=== PATIENT | male | born 1980 | race Caucasian/White ===

== ENCOUNTER 2017-12-11 23:21 | Emergency (ER) | payer MEDICAID, OTHER ==
--- NOTE | 2017-12-11 23:35 | EDPHY ---
H & P Stated Complaint: SENT FROM [facility] VIA [facility]AX[facility] Source: Patient Exam Limitations: Clinical condition - Personal History Current Tetanus/Diphtheria Vaccine: Yes - Medical/Surgical History Hx Asthma: No Hx Chronic Respiratory Disease: No Hx Diabetes: No Hx Cardiac Disease: No Hx Renal Disease: No Hx Cirrhosis: No Hx Alcoholism: No Hx HIV/AIDS: No Hx Splenectomy or Spleen Trauma: No Other PMH: DENIES - Social History Smoking Status: Former smoker Time Seen by Provider: 12/11/17 23:35 HPI/ROS: HPI: This is a 37-year-old male who presents with Chief Complaint: SENT FROM [facility]IA [facility] Location:psych Quality: paranoid Duration:today Signs and Symptoms: + auditory and visual command hallucinations, no suicidal ideation with a plan, no homicidal ideation, + paranoid Timing: Unknown Severity: Severe Context: Patient arrived via taxi from [facility]. Patient is clearly severely paranoid, gravely disabled, delusional. Patient is a very poor historian. Constantly needs redirection and prompting in order to get to his room, change his clothes, take blood. He E constantly talks about wanting to climb the [place]. Admits to drinking alcohol this evening. Denies recreational drug use. Denies any medical complaints. Reports that he is hungry and asking for food and Gatorade to drink. Modifying Factors: None Comment: ROS: see HPI Constitutional: No fever, no chills, no weight loss Eyes: No blurred vision Respiratory: No shortness of breath, no cough Cardiovascular: No chest pain Gastrointestinal: No nausea, no vomiting, no diarrhea Genitourinary: No dysuria Extremities: No myalgias Neurologic: No weakness, no numbness Skin: No rashes Hematologic: No bruising, no bleeding MEDICAL/SURGICAL/SOCIAL HISTORY: Medical history: Unknown Surgical history: Denies Social history: Unknown CONSTITUTIONAL: Untidy, uncooperative at times, adult male, awake and alert, no obvious distress HEENT: Atraumatic and normocephalic, PERRL, EOMI. Tympanic membranes clear. Oropharynx clear, no exudate and moist pink mucosa. Airway patent. No lymphadenopathy. No meningismus. Cardiovascular: Normal S1/S2, regular rate, regular rhythm, without murmur rub or gallop. PULMONARY/CHEST: Symmetrical and nontender. Clear to auscultation bilaterally. Good air movement. No accessory muscle usage. ABDOMEN: Soft, nondistended, nontender, no rebound, no guarding, no peritoneal signs, no masses or organomegaly. No CVAT. EXTREMITIES: 2/2 pulses, strength 5/5, no deformities, no clubbing, no cyanosis or edema. NEUROLOGICAL: no focal neuro deficits. GCS 15. SKIN: Warm and dry, no erythema. no rash. Good capillary refill. PSYCH: Poor eye contact, + flight of ideas, tangential disorganized thought process, poor insight and judgment, + auditory and visual command hallucinations , no suicidal ideation with a plan, no homicidal ideation, + paranoid (Jacquelyn Alston) Constitutional: Initial Vital Signs Temperature (C) 36.8 C 12/11/17 23:28 Heart Rate 82 12/11/17 23:28 Respiratory Rate 118 H 12/11/17 23:28 Blood Pressure 154/90 H 12/11/17 23:28 O2 Sat (%) 93 12/11/17 23:28 O2 Delivery Mode Room Air Allergies/Adverse Reactions: No Known Allergies Allergy (Unverified 12/11/17 23:27) Home Medications: Medication Instructions Recorded Celexa 12/11/17 Medical Decision Making ED Course/Re-evaluation: 2345: Placed on M1 hold as gravely disabled. Suspect schizophrenia. Given Zyprexa 5 mg ODT. Labs and UDS ordered. 0005: End of shift. Signed over to Dr. Thakkar pending labs and UDS; mental health evaluation; final disposition. This patient was seen under the supervision of my secondary supervising physician. I evaluated care for this patient independently. Discussed this patient with Dr. Thakkar who did not see the patient. (Jacquelyn Alston) PHYSICIAN DOCUMENTATION: The patient was evaluated and managed by the Physician Phlebotomist Prn. My co- signature indicates that I have reviewed this chart and I agree with the findings and plan of care as documented. I am the secondary supervising physician. 7:50 a.m.- The patient has remained stable throughout my shift. Alcohol level was elevated. Otherwise labs were unremarkable. He is currently awaiting sobriety and mental health evaluation. The case is signed out to the oncoming provider Dr. Raygoza. (Debora Thakkar) Differential Diagnosis: Altered mental status including but not limited to hypoglycemia, infectious process, electrolyte abnormality, head injury and intoxicants. (Jacquelyn Alston) Other Provider: Mental Health has completed evaluation at 1130am and has recommended lifting M1 hold. They recommend discharge to [id number]. (Az Raygoza) - Data Points Laboratory Results: Laboratory Results 12/11/17 23:50 12/11/17 23:50 12/11/17 12/11/17 12/11/17 23:50 23:50 23:44 WBC 7.49 10^3/uL 10^3/uL (3.80-9.50) RBC 5.32 10^6/uL 10^6/uL (4.40-6.38) Hgb 16.7 g/dL g/dL (13.7-17.5) Hct 48.2 % % (40.0-51.0) MCV 90.6 fL fL (81.5-99.8) MCH 31.4 pg pg (27.9-34.1) MCHC 34.6 g/dL g/dL (32.4-36.7) RDW 12.5 % % (11.5-15.2) Plt Count 264 10^3/uL 10^3/uL (150-400) MPV 9.4 fL fL (8.7-11.7) Neut % (Auto) 49.5 % % (39.3-74.2) Lymph % (Auto) 37.4 % % (15.0-45.0) [place] % (Auto) 10.0 % % (4.5-13.0) Eos % (Auto) 1.5 % % (0.6-7.6) Baso % (Auto) 1.2 % % (0.3-1.7) Nucleat RBC Rel Count 0.0 % % (0.0-0.2) Absolute Neuts (auto) 3.71 10^3/uL 10^3/uL (1.70-6.50) Absolute Lymphs (auto) 2.80 10^3/uL 10^3/uL (1.00-3.00) Absolute Monos (auto) 0.75 10^3/uL 10^3/uL (0.30-0.80) Absolute Eos (auto) 0.11 10^3/uL 10^3/uL (0.03-0.40) Absolute Basos (auto) 0.09 10^3/uL 10^3/uL (0.02-0.10) Absolute Nucleated RBC 0.00 10^3/uL 10^3/uL (0-0.01) Immature Gran % 0.4 % % (0.0-1.1) Immature Gran # 0.03 10^3/uL 10^3/uL (0.00-0.10) Sodium 154 mEq/L H mEq/L (135-145) Potassium 4.6 mEq/L mEq/L (3.5-5.2) Chloride 113 mEq/L H mEq/L (97-110) Carbon Dioxide 23 mEq/l mEq/l (22-31) Anion Gap 18 mEq/L H mEq/L (8-16) BUN 9 mg/dL mg/dL (7-23) Creatinine 0.9 mg/dL mg/dL (0.7-1.3) Estimated GFR > 60 Glucose 90 mg/dL mg/dL (70-100) Calcium 9.5 mg/dL mg/dL (8.5-10.4) Urine Opiates Screen NEGATIVE (NEGATIVE) Urine Barbiturates NEGATIVE (NEGATIVE) Ur Phencyclidine Scrn NEGATIVE (NEGATIVE) Ur Amphetamine Screen NEGATIVE (NEGATIVE) U Benzodiazepines Scrn NEGATIVE (NEGATIVE) Urine Cocaine Screen NEGATIVE (NEGATIVE) U Marijuana (THC) Screen NEGATIVE (NEGATIVE) Ethyl Alcohol 285 mg/dL H mg/dL (0-10) Medications Given: Discontinued Medications Lorazepam (Ativan Injection) 2 mg IM EDNOW ONE Stop: 12/11/17 23:43 Last Admin: 12/12/17 00:17 Dose: Not Given Lorazepam (Ativan) 1 mg PO EDNOW ONE Stop: 12/12/17 01:04 Last Admin: 12/12/17 01:06 Dose: 1 mg Olanzapine (Zyprexa Zydis) 5 mg PO EDNOW ONE Stop: 12/11/17 23:43 Last Admin: 12/11/17 23:58 Dose: 5 mg Olanzapine (Zyprexa Zydis) 10 mg PO EDNOW ONE Stop: 12/12/17 00:57 Last Admin: 12/12/17 00:57 Dose: 10 mg Departure - Departure Disposition: Home, Routine, Self-Care Clinical Impression: Schizophrenia, acute Condition: Good Instructions: Schizophrenia (ED) Additional Instructions: Follow-up with your mental health provider as directed. Return to the ED for thoughts of self-harm, racing thoughts or other concerns. Referrals: Patient,NotPresent [Primary Care Provider] - As per Instructions
[2017-12-11] MEDS ORDERED: OLANZapine DISINTEGR 5 MG TAB PO ONE (23:42)
[2017-12-11] MEDS ORDERED: LORazepam 2 MG/ML INJ IM ONE (23:42)
[2017-12-11 23:57] LABS: PLATELET COUNT 264 10^3/uL (150-400)
[2017-12-12] MEDS ORDERED: OLANZapine DISINTEGR 10 MG TAB ONE (00:48)
[2017-12-12] MEDS ORDERED: OLANZapine DISINTEGR 10 MG TAB PO ONE (00:56)
[2017-12-12] MEDS ORDERED: LORazepam 1 MG TAB ONE (01:03)
[2017-12-12] MEDS ORDERED: LORazepam 1 MG TAB PO ONE (01:03)
[2017-12-12 11:57] VITALS: BP 139/96
== END 2017-12-12 12:17 | disposition home or self-care (01) ==
DX: F23 Brief psychotic disorder (principal); Z87.891 Personal history of nicotine dependence
CPT/HCPCS: 80305; G0480; J2060